=== PATIENT | female | born 1955 | race Caucasian/White ===

== ENCOUNTER 2016-07-06 07:16 | Emergency (ER) | payer SELFPAY ==
[2016-07-06] MEDS ORDERED: OPTIRAY 350 100 ML VIAL HMH IV ONE (07:17)
[2016-07-06] MEDS ORDERED: SODIUM CHLORIDE 0.9% 1,000 ML ONE (07:57)
[2016-07-06] MEDS ORDERED: DIPHENOXYLATE/ATROP TAB 2.5 MG TAB ONE (07:57)
[2016-07-06] MEDS ORDERED: ONDANSETRON 4 MG VIAL ONE (07:57)
[2016-07-06] MEDS ORDERED: HYOSCYAMINE 0.5 MG/ML AMP 1 ML ONE (07:57)
[2016-07-06] MEDS ORDERED: PIPER/TAZO 3.375 GM PYXIS ONE (10:54)
[2016-07-06] MEDS ORDERED: SODIUM CHLORIDE 0.9% 100 ML IV ONE (10:55)
== END 2016-07-06 12:42 | disposition home or self-care (01) ==
LOC: ER 07:16
DX: K52.9 Noninfective gastroenteritis and colitis, unspecified (principal); R11.2 Nausea with vomiting, unspecified; Z91.040 Latex allergy status; E78.00 Pure hypercholesterolemia, unspecified; I10 Essential (primary) hypertension; K21.9 Gastro-esophageal reflux disease without esophagitis; J44.9 Chronic obstructive pulmonary disease, unspecified
CPT/HCPCS: 36415; 74177; 80053; 81001; 83630; 83690; 85025; 87045; 87046; 87088; 87493; 96361; 96365; 96375